=== PATIENT | female | born 1975 | race Caucasian/White ===

== ENCOUNTER 2019-10-30 18:13 | Emergency (ER) | payer OTHER ==
[~2019-10-30] VITALS: Ht 165.1 cm; Wt 124.7 kg
[2019-10-30 18:20] VITALS: BP 143/93; Ht 165.1 cm; Wt 124.7 kg
== END 2019-10-30 18:59 | disposition home or self-care (01) ==
LOC: ED 18:13
DX: M54.5 Low back pain (principal); G89.29 Other chronic pain
CPT/HCPCS: J1885